=== PATIENT | female | born 1990 | race Asian ===

== ENCOUNTER 2024-02-18 10:35 | Inpatient (IN) | payer MEDICAID, SELFPAY ==
[2024-02-18 11:13] VITALS: BP 114/69; BMI 31.7
[2024-02-18 12:31] LABS: % Basophils 0.3 % (0-2); % Eosinophils 2.2 % (0-6); % Immature Granulocytes 0.8 % (0-0.5); % Lymphocytes 12.6 % (20.5-51.1); % Monocytes 7.6 % (1.7-9.3); % Neutrophils 76.5 % (42.2-75.2); Absolute Eosinophils 0.2 10^3/uL (0-0.7); Absolute Immature Granulocytes 0.1 10^3/uL (0-0.05); Absolute Lymphocytes 1.2 10^3/uL (1.2-3.4); Absolute Monocytes 0.7 10^3/uL (0.1-0.6); Hematocrit 34.1 % (37.0-47.0); Hemoglobin 11.7 g/dL (12.0-16.0); Mean Corp Hgb Conc. 34.3 g/dL (33.0-37.0); Mean Corpuscular Hgb 28.8 pg (27.0-31.0); Mean Platelet Volume 11.3 fL (7.4-10.4); Nucleated Red Blood Cells % 0 %; Platelet Count 214 10^3/uL (130-400); Red Blood Cell Count 4.06 10^6/uL (4.20-5.40); Red Cell Dist. Width 13.8 % (11.5-14.5); White Blood Cell Count 9.1 10^3/uL (4.8-10.8)
[2024-02-18] MEDS: PITOCIN 30 UNITS/NSS 500 ML IV (13:47)
[2024-02-18] MEDS: MORPHINE SULFATE 2 MG IV (19:16)
[2024-02-18] MEDS: LR 1000 IV ×2 (20:16→22:27)
[2024-02-18] MEDS: SUBLIMAZE 100 MCG EPIDURAL (20:28)
[2024-02-18] MEDS: FENTANYL/BUPIVACAINE 100 EPIDURAL (20:29)
[2024-02-19] MEDS: TYLENOL 1000 MG PO ×2 (00:18→08:03)
[2024-02-19] MEDS: BICITRA 30 ML PO ×2 (00:18→07:57)
[2024-02-19] MEDS: ANCEF 10 IV ×2 (00:19→09:25)
[2024-02-19] MEDS: FENTANYL/BUPIVACAINE 100 EPIDURAL (04:08)
[2024-02-19] MEDS: LR 1000 IV (04:11)
[2024-02-19] MEDS: ZITHROMAX INFUSION 250 IV (07:30)
[2024-02-19 09:52] LABS: Cord ABG Comment CORD BLOOD
[2024-02-19 09:55] LABS: B.E. Cord ABG 0.8 mMOL/L; HCO3 Cord ABG 27.9 mmol/L; O2 Saturation % Cord ABG 20.6 %; PCO2 Cord ABG 53 mmHg; PO2 Cord ABG 13 mmHg; pH Cord ABG 7.33
[2024-02-19 09:58] LABS: HCO3 Cord ABG 27.4 mmol/L; O2 Saturation % Cord ABG 13.3 %; PCO2 Cord ABG 70 mmHg; PO2 Cord ABG 10 mmHg
[2024-02-19] MEDS: PRENATAL PLUS PO (13:10)
[2024-02-19] MEDS: TORADOL 15 MG IV ×2 (13:13→18:37)
[2024-02-19] MEDS: PITOCIN 30 UNITS/NSS 500 ML IV (13:15)
--- NOTE | 2024-02-19 13:59 | OR.RPT ---
Operative Report
Operative Report
Preop diagnosis: IUP @41.0, spontaneous rupture of membranes, persistent category 2 tracing, failed trial of labor after section
Postop diagnosis: same
Procedure: Repeat low transverse section
Surgeon: Emelia
Anesthesia: epidural Dr. Crum
QBL: 910mL
Findings: Viable male infant born from cephalic presentation at 0935, weighing 7lb 13.6oz, with Apgars of 8 and 9. Normal appearing bilateral fallopian tubes and ovaries. Vacuum assisted delivery with 2 pop offs. Oozing from hysterotomy (mostly from
the left corner) controlled with multiple figure of eights with 2-0 Vicryl.
Gaona: clear kimberly
Complications: none
Counts: correct times 2
Indication: Patient is a 34yo at 41.0 who presented to Labor and Delivery with complaints of spontaneous rupture of membranes. She was found to be grossly ruptured. She had a history of one prior section for breech presentation. She
desires a trial of labor after section. Risks, benefits and alternatives were discussed. She was not mary at that time. Patient was given a few hours to make cervical change, but did not start mary. She was offered Pitocin for
augmentation and was agreeable with the plan. Risks of uterine rupture was discussed. Around, 2020 Pitocin was turned off secondary to category 2 tracing with late and variable decelerations. Patient then got an epidural and decelerations continued.
Discussed proceeding with repeat low transverse section for persistent category 2 tracing, but patient and her partner were very hesitant and wanted a vaginal delivery. She was given time to decide and ultimately tracing returned to
category 1 and patient desired to continue with labor. heart rate tracing was intermittently category 2 throughout the night so Pitocin was never turned back on and patient was mary irregularly. She was offered a section
multiple times, but declined. In the morning, vaginal exam remained unchanged from prior at 5-6/90/-1. Discussion had with patient and her partner that because she was not making cervical change, remote from delivery and persistent category 2
tracing, it was recommended to proceed with repeat low transverse section. After thorough discussion of risks, benefits, and alternatives, patient was agreeable to proceeding. Consents had previously been signed and on the chart.
Procedure: Patient was taken to the operating room where epidural anesthesia was bolused and found to be adequate. 2g of Ancef and 500mg of Azithromycin were given for infection prophylaxis. The abdomen was prepped with ChloraPrep. The patient was
draped in the normal sterile fashion. She was placed in the dorsal supine position with a left lateral tilt. A Pfannenstiel incision was made through previous scar and carried down to the fascia with a scalpel. Hemostasis achieved with Bovie. The
fascia was incised and dissected laterally with Astorga scissors. The superior aspect of the fascia was grasped with Dipak clamps. The underlying rectus fascia was sharply dissected with Astorga scissors. In a similar fashion the inferior aspect of the
fascia was elevated with Dipak clamps and the rectus muscle was dissected off. The rectus muscles were down the midline to the level of the pubic symphysis with manual dissection. The peritoneum was elevated with hemostats and entered
through a clear window with Metzenbaum scissors. The peritoneum was extended using Metzenbaum scissors and manual traction.
Patino retractor and bladder blade were placed revealing good visualization of the bladder. The vesicouterine peritoneum was identified. A thin lower uterine segment was noted. The lower uterine segment was incised with a scalpel. Clear fluid
noted at entry into the cavity. The uterine incision was extended bluntly with lateral and upward traction.
The fetus was in cephalic presentation. The head was elevated out of the pelvis with special attention paid to avoid using the uterine incision as a fulcrum. Gentle fundal pressure was applied one the head was brought to the incision. There was
difficulty delivering the head. Vacuum was applied to head to assist in delivery with one pop off. head was not able to deliver through tight rectus muscles. Bilateral 2cm Maylard incisions were made. The head then delivered
through the hysterotomy and the rest of the delivered without difficulty. Delayed cord clamping was performed. The infant was handed off to the field insurance sales manager. Cord blood and cord gases were collected. IV oxytocin was started to facilitate
uterine contractions. The placenta was delivered with gentle traction and uterine fundal massage. The uterus was exteriorized. Allis clamps were placed at the apices of the hysterotomy. The inside of the uterus was wiped with a lap sponge to assure
complete removal of placental membranes. Fundal massage was performed and uterus noted to be firm. The uterine incision was closed with 0 Vicryl in a running locked fashion. A horizontal imbricating stitch was done on the hysterotomy. Oozing noted
from the left corner of the hysterotomy and multiple figure of eights were placed with 2-0 Vicryl to achieve hemostasis. Small oozing vessels from the lower edge of the hysterotomy were cauterized with the Bovie. The uterus was placed back in the
abdomen. There was still oozing from the left corner of the hysterotomy. The uterus was exteriorized again and the bleeding was controlled with 2-0 Vicryl in a running locked fashion. The hysterotomy was inspected and noted to be hemostatic. Blood
clots and fluid were wiped out of the abdomen and pelvis with moist laparotomy sponges. The uterus was placed back in the abdomen. The hysterotomy was examined again and noted to be hemostatic.
The bilateral Maylard incisions were reapproximated with a single interrupted suture on each side with 0 Vicryl. The rectus muscles were inspected and any oozing was controlled using Bovie cautery. The fascial layer was closed in a running
continuous fashion using 0-Vicryl. The subcutaneous tissue was copiously irrigated and any small bleeding vessels were cauterized with Bovie cautery. The subcutaneous tissue was reapproximated in a running continuous fashion with 2-0 Plain. The skin
was closed with 4-0 Monocryl in a subcuticular fashion. The incision was covered with steri strips and a pressure dressing. The patient tolerated the procedure well. All sponge and instrument counts were correct times two. The patient was taken to
the recovery room in stable condition.
[2024-02-20] MEDS: TORADOL IV (01:07)
[2024-02-20] MEDS: MOTRIN 600 MG PO ×4 (01:19→23:47)
[2024-02-20] MEDS: TYLENOL 650 MG PO ×4 (04:30→23:47)
[2024-02-20 05:09] LABS: Hematocrit 25.6 % (37.0-47.0); Hemoglobin 8.7 g/dL (12.0-16.0); Mean Corpuscular Hgb 30.1 pg (27.0-31.0); Mean Corpuscular Volume 88.6 fL (81.0-99.0); Mean Platelet Volume 10.8 fL (7.4-10.4); Platelet Count 148 10^3/uL (130-400); Red Blood Cell Count 2.89 10^6/uL (4.20-5.40); Red Cell Dist. Width 13.9 % (11.5-14.5); White Blood Cell Count 16.1 10^3/uL (4.8-10.8)
[2024-02-20] MEDS: PRENATAL PLUS 1 TABLET PO (08:39)
[2024-02-20] MEDS: MYLICON 80 MG PO (08:40)
[2024-02-20] MEDS: SENOKOT-S 1 TABLET PO (08:40)
--- NOTE | 2024-02-20 10:10 | W.PN.ANS.POP ---
Anesthesia Post Operative
- Anesthesia Post Op Note
Vital Signs Stable-See Nursing Note: Yes
Airway Patent: Yes
Adequate Pain Control: Yes
Change in Mental Status: No
Current Postoperative Nausea & Vomiting: No
Anesthesia Complications: No
General Anesthetic Recall: No
Unplanned Admission: No
Post Op Hydration Adequate: Yes
[2024-02-20] MEDS: FEOSOL 325 MG PO (15:17)
[2024-02-20] MEDS: VITAMIN C 500 MG PO (15:19)
[2024-02-20 20:15] LABS: Iron 38 ug/dl (37-170)
[2024-02-21] MEDS: PRENATAL PLUS 1 TABLET PO (08:33)
[2024-02-21] MEDS: SENOKOT-S 1 TABLET PO (08:34)
[2024-02-21] MEDS: TYLENOL 650 MG PO ×2 (08:34→22:30)
[2024-02-21] MEDS: VITAMIN C 500 MG PO (08:34)
[2024-02-21] MEDS: MOTRIN 600 MG PO ×3 (08:34→22:30)
[2024-02-21] MEDS: FEOSOL 325 MG PO (08:34)
[2024-02-21 11:25] LABS: Syphilis/T. pallidum Ab Reflex Negative (Negative)
--- NOTE | 2024-02-22 03:03 | DOWNTIME ---
There was a [employer] Downtime on 02/22/2024 from 0100 to 02/22/2024 at 0300. Downtime documentation of patient's care, including medication administrations, has been reconciled in the electronic record per guidelines. Refer to the
patient's paper chart under the miscellaneous tab to see printed paper medication records and downtime forms.
[2024-02-22] MEDS: TYLENOL 650 MG PO (05:02)
[2024-02-22] MEDS: MOTRIN 600 MG PO ×2 (05:02→11:37)
[2024-02-22] MEDS: SENOKOT-S 1 TABLET PO (07:54)
[2024-02-22] MEDS: FEOSOL 325 MG PO (07:54)
[2024-02-22] MEDS: PRENATAL PLUS 1 TABLET PO (07:54)
[2024-02-22] MEDS: VITAMIN C 500 MG PO (07:54)
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
--- NOTE | 2024-02-22 14:33 | W.DS.TRANS ---
DC Summary - [employer]
-
Discharge Instructions:
Discharge Diagnosis/Procedures s/p repeat ; Anemia, asymptomatic;
Adjustment disorder
Instructions:
Stand-Alone Forms: LDRP Delivery
Changes to Home Medications: No
Discharge Medications:
DC Medications w/original date entered in [facility]
glrusgdy-gpx-Aw-FA 1 mg tablet 1 tab PO 1XD Supplement 02/18/24
acetaminophen 325 mg tablet 650 mg (2 x 325 mg) PO Q4HPRN PRN mild pain #0 tabs 02/22/24
ferrous sulfate 325 mg (65 mg iron) tablet (FeroSul) 325 mg PO DAILY #0 tabs 02/22/24
ibuprofen 600 mg tablet 600 mg PO Q6HPRN PRN cramps #60 tabs 02/22/24
oxycodone 5 mg tablet 5 mg PO Q4H PRN severe pain #7 tabs 02/22/24
sennosides 8.6 mg-docusate sodium 50 mg tablet 1 tab PO DAILYPRN PRN constipation #0 tabs 02/22/24
Home Medication Changes
Pending Results: No
Total time spent discharging patient (in min): 20
== END 2024-02-22 15:35 | disposition home or self-care (01) | DRG 788 ==
LOC: LDRP 10:35
PROVIDERS: Obstetrics & Gynecology; ADMITTING PHYSICIAN Student in an Organized Health Care Education/Training Program; ATTENDING PHYSICIAN Obstetrics & Gynecology; CONSULT PHYSICIAN Psychiatry & Neurology Psychiatry
PROC: 10D00Z1 Extraction of Products of Conception, Low, Open Approach (ICD-10-PCS; 2024-02-19)
DX: O66.41 Failed attempted vaginal birth after previous cesarean delivery (principal); O34.211 Maternal care for low transverse scar from previous cesarean delivery; O48.0 Post-term pregnancy; O76 Abnormality in fetal heart rate and rhythm complicating labor and delivery; O90.81 Anemia of the puerperium; O99.344 Other mental disorders complicating childbirth; F43.20 Adjustment disorder, unspecified; Z3A.40 40 weeks gestation of pregnancy; Z37.0 Single live birth; Z87.74 Personal history of (corrected) congenital malformations of heart and circulatory system
CPT/HCPCS: 82803; 83540; 85025; 85027; 86780; 86850; 86900; 86901